=== PATIENT | male | born 1995 | race Two or more races ===

== ENCOUNTER 2018-08-18 04:21 | Emergency (ER) | payer OTHER ==
[~2018-08-18] VITALS: Ht 175.3 cm; Wt 69.0 kg
[2018-08-18 04:23] VITALS: BP 144/92
== END 2018-08-18 04:48 | disposition home or self-care (01) ==
LOC: ER 04:43
DX: Y35.893A Legal intervention involving other specified means, suspect injured, initial encounter
CPT/HCPCS: 99283

== ENCOUNTER 2021-06-04 15:32 | Emergency (ER) | payer BC, OTHER ==
[~2021-06-04] VITALS: Ht 177.8 cm; Wt 69.0 kg
[2021-06-04 15:39] VITALS: BP 139/84
[2021-06-04] MEDS ORDERED: ACETAMINOPHEN 325MG TABLET PO ONE (16:30)
[2021-06-04] MEDS ORDERED: IBUP-2028 MT (18:03)
== END 2021-06-04 19:11 | disposition home or self-care (01) ==
LOC: ER 15:32
DX: S62.91XA Unspecified fracture of right hand, initial encounter for closed fracture (principal); S09.8XXA Other specified injuries of head, initial encounter; V49.59XA Passenger injured in collision with other motor vehicles in traffic accident, initial encounter; Y93.89 Activity, other specified; Y92.89 Other specified places as the place of occurrence of the external cause; Y99.8 Other external cause status
CPT/HCPCS: 71045; 73130; 99284

== ENCOUNTER 2022-03-05 08:34 | Emergency (ER) | payer BC, MEDICAID ==
[~2022-03-05] VITALS: Ht 167.6 cm; Wt 65.0 kg
[~2022-03-05 08:34] MED LIST: IBUP-2028 MT
[2022-03-05 08:37] VITALS: BP 124/82
[2022-03-05] MEDS ORDERED: IBUPROFEN 600MG TABLET PO ONE (08:45)
[2022-03-05] MEDS ORDERED: TETANUS, DIPHTHERIA, PERTUSSIS VAC/PF 0.5ML (>10YR OLD) IM ONE (08:45)
[2022-03-05] MEDS ORDERED: SILV50CR31 TP (17:59)
[2022-03-05] MEDS ORDERED: IBUP-2030 MT (17:59)
== END 2022-03-05 09:15 | disposition left against medical advice (07) ==
LOC: ER 08:34
DX: R45.1 Restlessness and agitation (principal); F22 Delusional disorders; R07.9 Chest pain, unspecified
CPT/HCPCS: 99283

== ENCOUNTER 2022-03-05 09:31 | Emergency (ER) | payer BC, MEDICAID ==
[2022-03-05] MEDS ORDERED: SILV50CR31 TP (17:59)
[2022-03-05] MEDS ORDERED: IBUP-2030 MT (17:59)
== END 2022-03-05 11:35 | disposition left against medical advice (07) ==
LOC: ER 11:22
DX: Z53.21 Procedure and treatment not carried out due to patient leaving prior to being seen by health care provider (principal)

== ENCOUNTER 2022-03-05 14:33 | Emergency (ER) | payer BC, MEDICAID ==
[~2022-03-05] VITALS: Ht 172.7 cm; Wt 66.0 kg
[2022-03-05 14:45] VITALS: BP 125/78
[2022-03-05] MEDS ORDERED: HYDROCODONE/ACETAMINOPHEN 5/325MG TABLET PO ONE (15:00)
[2022-03-05] MEDS ORDERED: SILVER SULFADIAZINE 1% CREAM 50GM TOP STA (15:47)
[2022-03-05 15:59] LABS: BASOPHILS % 0.3 % (0.0-2.0); EOSINOPHILS % 0.1 % (0.0-5.0); HEMATOCRIT. 36.7 % (42.0-52.0); HEMOGLOBIN. 12.2 g/dL (14.0-18.0); LYMPHOCYTES % 8.9 % (20.0-50.0); MEAN CORPUSCULAR HEMOGLOBIN 30.5 pg (28.0-32.0); MEAN PLATELET VOLUME 9.7 fl (7.4-10.4); MONOCYTES % 14.5 % (2.0-8.0); NEUTROPHILS % 76.2 % (40.0-76.0); PLATELET 219 x1000/uL (130-400); RED BLOOD CELL COUNT 3.99 mill/uL (4.7-6.1); RED CELL DISTRIBUTION WIDTH 12.5 % (11.6-14.6)
[2022-03-05 16:09] LABS: CHLORIDE 101 mEq/L (98-107)
[2022-03-05 16:16] LABS: ETHANOL BLOOD < 10 mg/dL
[2022-03-05] MEDS ORDERED: HYDROCODONE/ACETAMINOPHEN 5/325MG TABLET PO SCH (17:30)
[2022-03-05] MEDS ORDERED: IBUP-2030 MT (17:59)
[2022-03-05] MEDS ORDERED: SILV50CR31 TP (17:59)
[2022-03-05 18:00] LABS: CLARITY URINE CLEAR (CLEAR); COLOR URINE DARK YELLOW (YELLOW); KETONES URINE 4+ (NEGATIVE); LEUKOCYTE ESTERASE URINE TRACE (NEGATIVE); NITRITE URINE NEGATIVE (NEGATIVE); OCCULT BLOOD URINE TRACE (NEGATIVE); PH URINE 5.5 (4.5-8.0); PROTEIN URINE 2+ (NEGATIVE); SPECIFIC GRAVITY URINE 1.027 (1.005-1.030)
[2022-03-05 18:13] LABS: *AMPHETAMINES SCREEN URINE PRESUMTIVE POSITIVE (NEGATIVE); *BARBITURATES SCREEN URINE NEGATIVE (NEGATIVE); *BENZODIAZEPINES SCREEN URINE PRESUMTIVE POSITIVE (NEGATIVE); *COCAINE SCREEN URINE NEGATIVE (NEGATIVE); CANNABINOID URINE SCREEN NEGATIVE (NEGATIVE); METHADONE URINE SCREEN NEGATIVE (NEGATIVE); OPIATES URINE SCREEN NEGATIVE (NEGATIVE); PHENCYCLIDINE URINE SCREEN NEGATIVE (NEGATIVE)
== END 2022-03-05 18:23 | disposition home or self-care (01) ==
LOC: ER 14:56
DX: M79.671 Pain in right foot (principal); S93.492A Sprain of other ligament of left ankle, initial encounter; T21.21XA Burn of second degree of chest wall, initial encounter; T31.0 Burns involving less than 10% of body surface; F15.129 Other stimulant abuse with intoxication, unspecified; X10.0XXA Contact with hot drinks, initial encounter; Y93.89 Activity, other specified; X58.XXXA Exposure to other specified factors, initial encounter; Y93.9 Activity, unspecified; Y92.9 Unspecified place or not applicable
CPT/HCPCS: 36415; 73630; 73650; 80053; 80305; 80307; 80320; 80329; 81003; 85025; 99284; Z7610; G0480